=== PATIENT | male | born 1980 | race Caucasian/White ===

== ENCOUNTER 2018-09-14 00:58 | Emergency (ER) | payer SELFPAY ==
--- NOTE | 2018-09-14 01:53 | ED PDOC ---
HPI: General Adult Chief Complaint (Provider): cp History Per: Patient (38 y/o male here with intermittent left chest pressure with radiation to left arm on and off since 8pm. Denies any sob/cough/fevers/fall. No family h/o [place]. Denies any smoking/htn/hld. [employer] <Enma Landry - Last Filed: 09/14/18 04:44> <Gabriele Larson - Last Filed: 09/14/18 06:13> Time Seen by Provider: 09/14/18 01:50 Chief Complaint (Nursing): Chest Pain Past Medical History Reviewed: Historical Data, Nursing Documentation, Vital Signs Vital Signs: Last Vital Signs Temp 97.6 F 09/14/18 01:09 Pulse 74 09/14/18 01:09 Resp 16 09/14/18 01:09 BP 165/91 H 09/14/18 01:09 Pulse Ox 99 09/14/18 01:09 Primary Care Provider: FAMILY PROVIDER,NO - Medical History PMH: Denies: Chronic Kidney Disease - Family History Family History: States: Unknown Family Hx - Immunization History Hx Tetanus Toxoid Vaccination: Yes Hx Influenza Vaccination: No Hx Pneumococcal Vaccination: No <Enma Landry - Last Filed: 09/14/18 04:44> Vital Signs: Last Vital Signs Temp 98.5 F 09/14/18 05:37 Pulse 91 H 09/14/18 05:37 Resp 16 09/14/18 05:37 BP 113/86 09/14/18 05:37 Pulse Ox 98 09/14/18 05:37 <Gabriele Larson - Last Filed: 09/14/18 06:13> - Home Medications Home Medications: Ambulatory Orders Medication Instructions Recorded Folic Acid 1 mg PO DAILY #30 tab 07/21/18 Multivitamins [Hexavitamin] 1 tab PO DAILY #30 tab 07/21/18 Thiamine [Vitamin B1 Tab] 100 mg PO DAILY #30 tab 07/21/18 - Allergies Allergies/Adverse Reactions: Allergies Allergy/AdvReac Type Severity Reaction Status Date / Time No Known Allergies Allergy Unverified 07/19/18 12:51 Review of Systems ROS Statement: Except As Marked, All Systems Reviewed And Found Negative <Enma Landry - Last Filed: 09/14/18 04:44> Physical Exam - Reviewed Nursing Documentation Reviewed: Yes Vital Signs Reviewed: Yes - Physical Exam Appears: Positive for: Well, Non-toxic, No Acute Distress Head Exam: Positive for: ATRAUMATIC, NORMAL INSPECTION, NORMOCEPHALIC Skin: Positive for: Normal Color, Warm, DRY Eye Exam: Positive for: EOMI, Normal appearance, PERRL ENT: Positive for: Normal ENT Inspection Neck: Positive for: Normal, Painless ROM Cardiovascular/Chest: Positive for: Regular Rate, Rhythm Respiratory: Positive for: CNT, Normal Breath Sounds Gastrointestinal/Abdominal: Positive for: Normal Exam, Soft Back: Positive for: Normal Inspection Extremity: Positive for: Normal ROM Neurological/Psych: Positive for: Awake, Alert, Normal Tone <Enma Landry - Last Filed: 09/14/18 04:44> - Laboratory Results Result Diagrams: 09/14/18 02:11 09/14/18 02:11 - ECG O2 Sat by Pulse Oximetry: 99 <Enma Landry - Last Filed: 09/14/18 04:44> - Laboratory Results Result Diagrams: 09/14/18 02:11 09/14/18 02:11 Lab Results: D-Dimer, Quantitative < 200 ng/mlDDU (0-230) 09/14/18 02:11 Troponin I < 0.0120 ng/mL (0.00-0.120) 09/14/18 04:51 Total Bilirubin 0.5 mg/dl (0.2-1.3) 09/14/18 02:11 AST 39 U/L (17-59) 09/14/18 02:11 ALT 62 U/L (21-72) 09/14/18 02:11 Alkaline Phosphatase 65 U/L (38-126) 09/14/18 02:11 Total Protein 8.3 G/DL (6.3-8.2) H 09/14/18 02:11 Albumin 4.6 g/dL (3.5-5.0) 09/14/18 02:11 Globulin 3.7 gm/dL (2.2-3.9) 09/14/18 02:11 Albumin/Globulin Ratio 1.2 (1.0-2.1) 09/14/18 02:11 <Gabriele Larson - Last Filed: 09/14/18 06:13> Medical Decision Making Medical Decision MakinAM Veda Malik [employer]acker Used: [id number] --Results explained to patient --Patient re-evaluated at bedside, no longer having pain --Vitals stable --Return precautions given --Very well appearing upon discharge <Gabriele Larson - Last Filed: 09/14/18 06:13> Disposition - Disposition Disposition Time: 05:00 Handoff Comments: continued to be followed by dr. larson. <Enma Landry - Last Filed: 09/14/18 04:44> - Disposition Disposition: Routine/Home Disposition Time: 05:30 <Gabriele Larson - Last Filed: 09/14/18 06:13> - Clinical Impression Clinical Impression: Chest pain - Disposition Referrals: [facility] [Outside] Condition: FAIR Instructions: Chest Pain That Is Not Caused by the Heart (DC) Forms: [facility] (Pashto) Print Language: PALAUAN
[2018-09-14 02:15] LABS: BASO % 0.4 % (0.0-2.0); EOS # 0.1 K/uL (0.0-0.7); EOS % 1.5 % (0.0-4.0); HEMOGLOBIN 16.4 g/dL (12.0-18.0); MEAN CELL VOLUME 93.2 fl (80.0-94.0); MEAN CORPUSCULAR HEMOGLOBIN 31.9 pg (27.0-31.0); MEAN CORPUSCULAR HGB CONC 34.2 g/dL (33.0-37.0); MEAN PLATELET VOLUME 9.2 fl (7.2-11.7); MONO # 0.6 K/uL (0.0-0.8); MONO % 8.1 % (0.0-10.0); NEUT # 3.9 K/uL (1.8-7.0); NRBC % 0.1 % (0.0-0.0); RBC 5.15 Mil/uL (4.40-5.90); RED CELL DISTRIBUTION WIDTH 12.3 % (11.5-14.5); WHITE BLOOD COUNT 7.7 K/uL (4.8-10.8)
[2018-09-14 02:25] LABS: ALB/GLOB RATIO 1.2 (1.0-2.1); ALBUMIN 4.6 g/dL (3.5-5.0); ALT/SGPT 62 U/L (21-72); AST/SGOT 39 U/L (17-59); BLOOD UREA NITROGEN 14 mg/dl (9-20); CALCIUM 10.1 mg/dL (8.4-10.2); GFR NON-AFRICAN AMERICAN > 60
[2018-09-14 05:38] VITALS: BP 113/86; PULSE 91; RESP 16; TEMP 98.5; O2SAT 98
--- NOTE | 2018-09-14 07:51 | RAD ---
Date of service: 09/14/2018 HISTORY: CP COMPARISON: No prior. TECHNIQUE: 1 view obtained. FINDINGS: LUNGS: No active pulmonary disease. PLEURA: No significant pleural effusion identified, no pneumothorax apparent. CARDIOVASCULAR: No aortic atherosclerotic calcification present. Normal cardiac size. No pulmonary vascular congestion. OSSEOUS STRUCTURES: No significant abnormalities. VISUALIZED UPPER ABDOMEN: Normal. OTHER FINDINGS: None. IMPRESSION: No active disease.
--- NOTE | 2018-09-14 10:22 | CARD ---
APPROVED REPORT Date of service: 09/14/2018 EKG Measurement Heart [id number] <Conclusion> Normal sinus rhythm Normal ECG
== END 2018-09-14 05:37 | disposition home or self-care (01) ==
LOC: H.ER 00:58
DX: R07.89 Other chest pain (principal)